=== PATIENT | female | born 1975 | race Hispanic/Latino ===

== ENCOUNTER 2025-06-17 08:01 | Day surgery (SDC) | payer OTHER, SELFPAY ==
--- NOTE | 2025-06-17 | PATH_ITS ---
[facility] Accession Number: [id number] No. of containers..01 Tissue . 01 Material submitted: . rectum - RECTAL POLYP . 01 Diagnosis: RECTAL POLYP: Tubular adenoma. MRV 06/24/2025 1755 Local . 01 Electronically signed: . Say Tellez MD, PhD, Pathologist NPI- [id number] . 01 Gross description: . Received in formalin with two patient identifiers and rectal polyp. The specimen consists of three valdivia polypoid soft tissue fragments measuring 0.5 x 0.5 x 0.5 cm, 0.4 x 0.3 x 0.2 cm, and 0.3 x 0.2 x 0.2 cm. The larger polyp is inked blue and bisected. All four pieces are submitted in cassette A1. ([id number]) /MRV 06/22/2025 2132 Local . 01 Pathologist provided ICD-10: D12.8 . 01 CPT . 945010 Specimen Comment: A courtesy copy of this report has been sent to [phone] Performed at: [address] [id number] MD Justice Marte MD Phone: [phone]
[2025-06-17 08:50] VITALS: BP 143/90; PULSE 85; RESP 15; TEMP 36.1; O2SAT 99
[2025-06-17] MEDS: LACTATED RINGERS 1,000 ML 84 ML IV (08:59)
--- NOTE | 2025-06-17 09:14 | PM.HP.IH.1 ---
History of Present Illness History of Present Illness Date Patient Seen: 06/17/25 Time Patient Seen: 09:15 Chief complaint: SDC Narrative: Gloria is a 50-year-old woman presenting for a colonoscopy. She has never had one before. She did have abdominal surgery many years ago for a bowel obstruction. [facility] Social History Smoking Status: Never smoker Meds Home Medications and Allergies Home Medications ?Medication ?Instructions ?Recorded ?Confirmed ?Type tirzepatide (weight loss) 7.5 5 mg SUBCUT QWEEK 06/17/25 06/17/25 History mg/0.5 mL subcutaneous solution (Zepbound) Allergies Allergy/AdvReac Type Severity Reaction Status Date / Time No Known Drug Allergies Allergy Verified 06/17/25 08:43 Exam Vital Signs (past 8 hours): - 06/17/25 08:50 Temperature 97.0 F L Pulse Rate 85 Respiratory Rate 15 Blood Pressure 143/90 H Pulse Oximetry 99 Oxygen Delivery Method Room Air Oxygen Delivery Method Room Air Const General: No acute distress Assessment & Plan Assessment and plan (1) Colon cancer screening: Status: Acute Plan Colonoscopy Time-Based Coding :: [TOTAL MINUTES] spent with patient and on the chart (including review of chart, obtaining history, exam, reviewing outside data, placing orders, documenting exam and treatment plan, and counseling patient) on [DATE]. [employer] Scientist Document charge(s): No
--- NOTE | 2025-06-17 09:45 | PM.OP.COLON ---
Operative Date/Time/Diagnoses Date of procedure: 06/17/25 Time of procedure: 09:45 Pre-op diagnosis: Colon cancer screening Post-op diagnosis: same Procedure & Clinicians Study performed: Colonoscopy Same procedure(s) as scheduled: Yes Surgeon: Steve Conklin Anesthesia Type: MAC +/- Procedure Notes Procedure in detail: Surgeon: Steve Conklin MD Anesthesia: Mj Amaro MD Procedure: The patient was brought to the endoscopy suite, placed in left lateral decubitus position. The patient was connected to monitoring devices. A time-out was performed. Sedation was administered. Once the patient was adequately sedated, a digital rectal exam was performed and was normal. The scope was then inserted and advanced to the cecum where the appendiceal orifice was identified and photographed. The scope was then slowly withdrawn over greater than 6 minutes. The mucosa was thoroughly inspected. There was a 7 mm polyp in the distal rectum removed with a cold snare. The scope was retroflexed in the rectum. No other abnormalities were found. The scope was straightened and removed. The patient was awakened and brought to recovery. Scope withdrawal time: 7 minutes Sedation time: 10 minutes EBL: 3 mL Findings: 7 mm rectal polyp Post-procedure Disposition: PACU
[2025-06-17 09:47] VITALS: BP 120/66; PULSE 75; RESP 15; TEMP 36.6; O2SAT 100
[2025-06-17 09:54] VITALS: BP 130/65; PULSE 72; RESP 15; TEMP 36.6; O2SAT 100
== END 2025-06-17 10:15 | disposition home or self-care (01) ==
PROVIDERS: Referring Provider Surgery; Visit Provider Surgery
PROC: 0DJD8ZZ Inspection of Lower Intestinal Tract, Via Natural or Artificial Opening Endoscopic (ICD-10-PCS; CPT 45378; principal; 2025-06-17 09:15)
DX: Z12.11 Encounter for screening for malignant neoplasm of colon (principal); D12.8 Benign neoplasm of rectum
CPT/HCPCS: 45385; J2250; J2704